=== PATIENT | female | born 1975 | race Two or more races ===

== ENCOUNTER → 2024-08-02 | Outpatient (CLI) | payer BC, SELFPAY ==
[2024-08-02 08:35] LABS: Basophils % (Auto) 1 % (0-2.5); Eosinophils # (Auto) 0.2 Thou/mm3 (0.0-0.5); Eosinophils % (Auto) 4 % (0-10); Hemoglobin 13.1 g/dL (12.0-16.0); Immature Granulocytes % (Auto) 0 % (0-0); Immature Granulocytes Auto 0.01 Thou/mm3 (0.00-0.00); Lymphocytes # (Auto) 1.6 Thou/mm3 (1.0-4.8); Lymphocytes % (Auto) 32 % (10-50); Mean Corpuscular HGB Conc 34.5 g/dl (31.0-37.0); Mean Corpuscular Hemoglobin 30.3 pg (25.0-35.0); Mean Corpuscular Volume 88 fL (80-100); Monocytes # (Auto) 0.4 Thou/mm3 (0.0-0.8); Monocytes % (Auto) 7 % (0-12); Neutrophils # (Auto) 2.8 Thou/mm3 (1.8-7.7); Neutrophils % (Auto) 56 % (37-80); Nucleated Red Blood Cell % 0 /100 WBC (0); Platelet Count 260 Thou/mm3 (140-440); RDW Standard Deviation 41.1 fL (36.4-46.3); Red Blood Count 4.33 Miln/mm3 (4.00-5.20)
[2024-08-02 08:47] LABS: Glucose Estimated Average 97 mg/dL (80-131)
[2024-08-02 09:17] LABS: Alanine Aminotransferase 8 U/L (10-49); Albumin, Serum 4.5 gm/dL (3.5-5.0); Anion Gap 7 (7-16); Aspartate Amino Transferase 18 U/L (0-34); BUN/Creatinine Ratio 16 Ratio (12-20); Bilirubin,Total 1.7 mg/dL (0.3-1.2); Blood Urea Nitrogen 14 mg/dL (9-23); Chloride 104 mMol/L (98-107); Creatinine (Component) 0.9 mg/dL (0.6-1.3); Glucose 99 mg/dL (74-106); Osmolality,Calculated 276 (275-295); Sodium 138 mMol/L (136-145); eGFR > 60 See Note
[2024-08-02 09:18] LABS: Albumin/Globulin Ratio 1.8 (1.2-2.2); Alkaline Phosphatase 54 U/L (46-116); Cardiac Risk Estimate 4.2 RATIO (3.7-5.6); Cholesterol 216 mg/dL (132-200); Free T3 3.1 pg/mL (2.3-4.2); Globulin 2.5 gm/dL (2.3-3.5); HDL Cholesterol 51 mg/dL (40-60); LDL Cholesterol,Calculated 147 mg/dL (0-130); Triglycerides 88 mg/dL (30-150)
[2024-08-02 09:20] LABS: Folate > 24.00 ng/mL (>5.38); Follicle Stimulating Hormone 123.63 mIU/mL (See Note); Vitamin B12 621 pg/mL (211-911); Vitamin D 25 Hydroxy Total 39.2 ng/mL (7.3-40.2)
[2024-08-14 06:40] LABS: Estradiol, Ultrasensitive* <2 pg/mL; Luteinizing Hormone* 49.3 mIU/mL; Progesterone,LC/MS* <0.1 ng/mL; Testosterone, Free,Dialysis 1.4 pg/mL (0.1-6.4); Testosterone, Total, Dialysis 15 ng/dL (2-45)
== END | disposition home or self-care (01) ==
LOC: COPL 07:26
PROVIDERS: PCP Family Medicine; Referring Provider Family Medicine; Visit Provider Family Medicine
DX: Z13.1 Encounter for screening for diabetes mellitus (principal); E55.9 Vitamin D deficiency, unspecified; N95.1 Menopausal and female climacteric states; R53.83 Other fatigue; Z13.6 Encounter for screening for cardiovascular disorders
CPT/HCPCS: 36415; 80053; 80061; 82306; 82607; 82670; 82746; 83001; 83002; 83036; 84144; 84402; 84403; 84439; 84443; 84481; 85025

== ENCOUNTER → 2024-09-12 | Outpatient (CLI) | payer BC, SELFPAY ==
--- NOTE | 2024-09-12 11:00 | XR_ITS ---
Examination: Screening digital mammography, bilateral Computer aided detection 3-D breast Tomosynthesis, bilateral Date and time of exam: September 12, 2024 1054 hours Compared to mammograms dating to June 06, 2023 Indication: Screening Technique: Nonmagnified MLO, CC views of the breasts to been obtained, reconstructed from 3-D Tomosynthesis images. R2 computer aided detection program utilized for evaluation of suspicious masses and/or abnormal calcifications. 3-D Tomosynthesis images obtained. Findings: The breasts are heterogeneously dense, which may obscure small masses Breast biopsy marker inner left breast and upper outer left breast, breast biopsy marker upper outer right breast No definite suspicious masses Impression: BI-RADS Category 0: Incomplete: Need additional imaging evaluation Given the bilateral biopsy history, recommend repeat breast sonography, bilateral, to compare with the breast sonogram July 13, 2023
== END | disposition home or self-care (01) ==
LOC: CDIM 10:47
PROVIDERS: Referring Provider Family Medicine; Visit Provider Family Medicine
DX: Z12.31 Encounter for screening mammogram for malignant neoplasm of breast (principal); R92.8 Other abnormal and inconclusive findings on diagnostic imaging of breast
CPT/HCPCS: 77063; 77067

== ENCOUNTER → 2024-11-02 | Outpatient (CLI) | payer BC, SELFPAY ==
--- NOTE | 2024-11-02 08:45 | XR_ITS ---
Examination: Breast ultrasound complete, bilateral Date and time of exam: November 02, 2024, 0846 hours INDICATIONS: Bilateral breast sonography July 2023 left breast 1:00 nodule and 9:00 nodule, 12 mm, 15 mm indistinct margins biopsied Technique: Real-time grayscale ultrasonographic imaging bilateral breasts, including all 4 quadrants as well as nipple retroareolar and axillary regions. Findings: Sonographic images right breast 12:00 cyst 4 x 2 mm 10:00 nodule with biopsy marker 9 x 8 mm 10:00 irregular nodule 12 x 5 mm Sonographic images left breast 12:00 nodule circumscribed 5 x 5 mm 1:00 nodule circumscribed 9 x 7 mm 6:00 nodule circumscribed 8 x 6 mm 9:30 nodule 16 x 10 mm lobular margins with breast biopsy marker IMPRESSION: BI-RADS Category 4: Suspicious for malignancy Suspicious nodule 10:00 position right breast, biopsy is needed to exclude breast carcinoma, this nodule is amenable to ultrasound-guided breast biopsy for diagnosis Continued 6 month bilateral breast sonography strongly recommended to document stability of nodules described above
== END | disposition home or self-care (01) ==
LOC: CDIM 08:24
PROVIDERS: PCP Family Medicine; Referring Provider Family Medicine; Visit Provider Family Medicine
DX: N63.11 Unspecified lump in the right breast, upper outer quadrant (principal)
CPT/HCPCS: 76641